=== PATIENT | female | born 1985 | race Caucasian/White ===

== ENCOUNTER 2019-11-22 18:29 | Emergency (ER) | payer MEDICAID, SELFPAY ==
[2019-11-22 18:30] VITALS: BP 114/65; PULSE 78; RESP 16; TEMP 36.6; O2SAT 98; BMI 30.1
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
[2019-11-22 18:45] VITALS: BP 153/74; PULSE 78; RESP 16; TEMP 36.6; O2SAT 98
== END 2019-11-22 18:46 ==
PROVIDERS: Emergency Provider Emergency Medicine
DX: F11.90 Opioid use, unspecified, uncomplicated (principal); S40.212A Abrasion of left shoulder, initial encounter; V87.7XXA Person injured in collision between other specified motor vehicles (traffic), initial encounter
CPT/HCPCS: 99282